=== PATIENT | female | born 1955 | race Caucasian/White ===

== ENCOUNTER 2017-09-02 18:47 | Emergency (ER) | payer OTHER ==
[~2017-09-02] VITALS: Ht 160 cm; Wt 45.0 kg
[~2017-09-02 18:47] MED LIST: NO MEDICATIONS; NORCO10T PO; VAL5T PO
[2017-09-02] MEDS ORDERED: fentaNYL/PF 50MCG/1 ML 2ML syringe IV ONE (20:55)
[2017-09-02] MEDS ORDERED: propofol 1000mg/100ml bottle 100 ML IV PRN (21:10)
[2017-09-02] MEDS ORDERED: propofol 1000mg/100ml bottle 100 ML IV ONE (21:15)
[2017-09-02] MEDS ORDERED: HYDROcodone/acetaminophen 5mg/325mg tablet PO ONE (21:45)
[2017-09-02 22:24] VITALS: BP 143/74
== END 2017-09-02 22:25 | disposition home or self-care (01) ==
LOC: ER 18:47
DX: S43.005A Unspecified dislocation of left shoulder joint, initial encounter (principal); Z98.890 Other specified postprocedural states; W19.XXXA Unspecified fall, initial encounter; Y93.89 Activity, other specified; Y92.89 Other specified places as the place of occurrence of the external cause; Y99.8 Other external cause status
CPT/HCPCS: 23650; 73020; 73030; 96374; 99285; A4565; J2704; J3010; J7030; 99152; A4620; L3650